=== PATIENT | male | born 1980 | race African-American/Black ===

== ENCOUNTER 2018-08-21 18:51 | Emergency (ER) | payer MEDICAID ==
[2018-08-21] MEDS ORDERED: CARV25TA78 PO (19:01)
[2018-08-21] MEDS ORDERED: ASPIRIN 81 MG CHEW PO ONE (19:20)
[2018-08-21] MEDS ORDERED: NITROGLYCERIN 0.4 MG SUBL SL ONE (19:20)
--- NOTE | 2018-08-21 19:38 | ER Report ---
History and Physical Time Seen By MD: 18:50 Hx. of Stated Complaint: did cocaine yesterday. states he had chest pain and dizzinerss yesterday and today. now has chest tightness and dizziness. states he has HF due to joint terminal attack controller cocaine use HPI/ROS CHIEF COMPLAINT: Chest pain HISTORY OF PRESENT ILLNESS: 38-year-old male presents with chest pain and pressure. He states he snorted and smoked cocaine yesterday afternoon. On the third hit, he developed sharp intermittent chest pain. Of note, patient has a significant history of cocaine use, gets his primary medical care in [place], was seen in both May and June for cocaine related chest pain. In June he states he was diagnosed with heart failure with an ejection fraction of 16%. At that point he was doing cocaine daily. Since then he has tried to minimize cocaine u se but is still using it every few days. Patient states he has had intermittent chest pains since yesterday. 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 These went away, however he developed chest pressure that began approximately 30 minutes prior to arrival and has continued. Pressure radiates to his left jaw. It does not radiate to his arms and he does not believ e that radiates to his back, though patient does note that he has had intermittent back pain that may or may not be related to the chest pain. Patient denies numbness or weakness in his arms or legs. He denies concerning headache. He states he had presyncope while driving during the development of chest pressure, but was able to drive here. He has not had a stress test as he is been told that his heart is too weak for a stress test. He has not had a cardiac catheterization. He admits to a half pack of tobacco daily. He denies alcohol use. REVIEW OF SYSTEMS: Constitutional: No fever, no chills. Eyes: No discharge. ENT: No sore throat. Cardiovascular: above Respiratory: No cough, no shortness of breath. Gastrointestinal: nausea, no vomiting Genitourinary: No hematuria. Musculoskeletal: above Skin: No rashes. Neurological: No headache. Remainder of the 14 system rev: Yes Allergies: Coded Allergies: No Known Drug Allergies (Unverified , 08/21/18) Home Meds Active Scripts Lisinopril (LISINOPRIL) 10 Mg Tablet, 10 MG PO QDAY, #30 TAB Prov:VINOD PICKERING MD 08/22/18 Carvedilol (CARVEDILOL) 25 Mg Tablet, 25 MG PO BID, #30 TAB Prov:VINOD PICKERING MD 08/22/18 Reported Medications Carvedilol (CARVEDILOL) 25 Mg Tablet, 25 MG PO BID, #10 TAB 08/21/18 Reviewed Nurses Notes: Yes Hx Substance Use Disorder: Yes (cocaine) Constitutional Vital Sign - Last 24 Hours 08/21/18 08/21/18 08/21/18 08/21/18 18:59 20:00 20:14 20:19 Temp 98.8 Pulse 68 72 Resp 20 18 B/P (MAP) 175/122 139/101 (114) 144/92 (109) Pulse Ox 93 95 O2 Delivery Room Air 08/21/18 08/21/18 08/21/18 08/21/18 20:47 21:00 21:30 22:00 Pulse 71 65 71 Resp 20 11 18 B/P (MAP) 124/87 (99) Pulse Ox 97 95 97 08/21/18 08/21/18 08/21/18 08/21/18 22:05 22:20 22:35 22:40 Pulse 70 71 74 62 Resp 19 20 8 10 Pulse Ox 93 95 99 97 08/21/18 08/21/18 08/21/18 08/21/18 22:45 22:50 22:55 23:00 Pulse ??? 71 74 73 Resp 23 20 17 16 Pulse Ox 96 93 93 92 08/21/18 08/21/18 08/21/18 08/21/18 23:05 23:10 23:15 23:20 Pulse 58 62 59 77 Resp 14 13 17 20 Pulse Ox 97 96 94 91 08/21/18 08/21/18 08/21/18 08/21/18 23:25 23:30 23:35 23:40 Pulse 76 76 57 54 Resp 18 16 16 15 Pulse Ox 95 95 95 98 08/21/18 08/21/18 23:45 23:50 Pulse 63 63 Resp 22 9 Pulse Ox 100 97 Physical Exam General Appearance: The patient is alert, has no immediate need for airway protection and no signs of toxicity. Eyes: Pupils equal and round no pallor or injection. ENT, Mouth: Mucous membranes are moist. Respiratory: There are no retractions, lungs are clear to auscultation. Cardiovascular: Regular rate and rhythm. iii/vi systolic murmur, no carotid bruit. Pulses = and strong in all ext Gastrointestinal: Abdomen is soft and non tender, no masses, bowel sounds normal. Neurological: alert, oriented x 3, moves all extremities Skin: Warm and dry, no rashes. Musculoskeletal: Neck is supple non tender. Extremities are nontender, nonswollen and have full range of motion. DIFFERENTIAL DIAGNOSIS: After history and physical exam differential diagnosis was considered for chest pain including but not limited to myocardial ischemia, pericarditis pulmonary embolus, chest wall pain, pleural inflammation and pulmonary infectious causes.shortness of breath including but not limited to pulmonary infectious process, COPD, asthma, pulmonary embolus and congestive heart failure. Medical Decision Making Data Points Result Diagram: 08/21/18190408/21/181904 Laboratory Hematology Test 08/21/18 19:05 08/21/18 20:28 08/22/18 00:27 Red Blood Count 4.50 M/uL (4.00-5.60) Mean Corpuscular Volume 86.0 fL (80.0-96.0) Mean Corpuscular Hemoglobin 29.2 pg (26.0-33.0) Mean Corpuscular Hemoglobin Concent 33.9 g/dL (32.0-36.0) Red Cell Distribution Width 15.6 % (11.5-14.5) Mean Platelet Volume 8.3 fL (7.2-11.1) Neutrophils (%) (Auto) 53.3 % (39.4-72.5) Lymphocytes (%) (Auto) 33.8 % (17.6-49.6) Monocytes (%) (Auto) 9.3 % (4.1-12.4) Eosinophils (%) (Auto) 2.5 % (0.4-6.7) Basophils (%) (Auto) 1.1 % (0.3-1.4) Nucleated RBC Relative Count (auto) 0.0 /100WBC Neutrophils # (Auto) 2.7 K/uL (2.0-7.4) Lymphocytes # (Auto) 1.7 K/uL (1.3-3.6) Monocytes # (Auto) 0.5 K/uL (0.3-1.0) Eosinophils # (Auto) 0.1 K/uL (0.0-0.5) Basophils # (Auto) 0.1 K/uL (0.0-0.1) Nucleated RBC Absolute Count (auto) 0.00 K/uL Prothrombin Time 14.0 seconds (12.0-14.4) Prothromb Time International Ratio 1.08 Activated Partial Thromboplast Time 34 seconds (23-35) Sodium Level 142 mmol/L (137-145) Potassium Level 3.4 mmol/L (3.5-5.0) Chloride Level 108 mmol/L (98-107) Carbon Dioxide Level 25 mmol/L (22-30) Blood Urea Nitrogen 12 mg/dl (9-21) Creatinine 1.20 mg/dl (0.66-1.25) Glomerular Filtration Rate Calc > 60.0 Random Glucose 148 mg/dl (75-110) Calcium Level 9.2 mg/dl (8.4-10.2) Total Bilirubin 0.4 mg/dl (0.2-1.3) Aspartate Amino Transf (AST/SGOT) 28 U/L (0-35) Alanine Aminotransferase (ALT/SGPT) 25 U/L (0-56) Alkaline Phosphatase 47 U/L (0-126) Total Protein 7.5 g/dl (6.3-8.2) Albumin 4.2 g/dl (3.5-5.0) Lipase 60 U/L (23-300) Serum Alcohol < 10 mg/dl Urine Color Yellow Urine Clarity Clear Urine pH 6.0 pH (4.8-9.5) Urine Specific [place] 1.025 Urine Protein Negative mg/dL (NEGATIVE) Urine Glucose (UA) Negative mg/dL (NEGATIVE) Urine Ketones Negative mg/dL (NEGATIVE) Urine Blood Negative (NEGATIVE) Urine Nitrite Negative (NEGATIVE) Urine Bilirubin Negative (NEGATIVE) Urine Urobilinogen Negative mg/dL (0.2-1.9) Urine Leukocyte Esterase Negative (NEGATIVE) Urine RBC 1 /HPF (0-2/HPF) Urine WBC 1 /HPF (0-5/HPF) Urine Squamous Epithelial Cells None /LPF (</=FEW) Urine Bacteria Negative /HPF (NONE-FEW) Urine Mucus Few /HPF (NONE-FEW) Urine Opiates Screen Negative Urine Barbiturates Screen Negative Ur Tricyclic Antidepressants Screen Negative Urine Phencyclidine Screen Negative Urine Amphetamines Screen Negative Urine Benzodiazepines Screen Negative Urine Cocaine Screen Positive Urine Cannabinoids Screen Negative Troponin I < 0.012 ng/ml Chemistry Test 08/21/18 19:05 08/21/18 20:28 08/22/18 00:27 White Blood Count 5.1 k/uL (4.5-11.0) Red Blood Count 4.50 M/uL (4.00-5.60) Hemoglobin 13.1 g/dL (14.0-18.0) Hematocrit 38.7 % (42.0-52.0) Mean Corpuscular Volume 86.0 fL (80.0-96.0) Mean Corpuscular Hemoglobin 29.2 pg (26.0-33.0) Mean Corpuscular Hemoglobin Concent 33.9 g/dL (32.0-36.0) Red Cell Distribution Width 15.6 % (11.5-14.5) Platelet Count 243 K/uL (150-450) Mean Platelet Volume 8.3 fL (7.2-11.1) Neutrophils (%) (Auto) 53.3 % (39.4-72.5) Lymphocytes (%) (Auto) 33.8 % (17.6-49.6) Monocytes (%) (Auto) 9.3 % (4.1-12.4) Eosinophils (%) (Auto) 2.5 % (0.4-6.7) Basophils (%) (Auto) 1.1 % (0.3-1.4) Nucleated RBC Relative Count (auto) 0.0 /100WBC Neutrophils # (Auto) 2.7 K/uL (2.0-7.4) Lymphocytes # (Auto) 1.7 K/uL (1.3-3.6) Monocytes # (Auto) 0.5 K/uL (0.3-1.0) Eosinophils # (Auto) 0.1 K/uL (0.0-0.5) Basophils # (Auto) 0.1 K/uL (0.0-0.1) Nucleated RBC Absolute Count (auto) 0.00 K/uL Prothrombin Time 14.0 seconds (12.0-14.4) Prothromb Time International Ratio 1.08 Activated Partial Thromboplast Time 34 seconds (23-35) Glomerular Filtration Rate Calc > 60.0 Calcium Level 9.2 mg/dl (8.4-10.2) Total Bilirubin 0.4 mg/dl (0.2-1.3) Aspartate Amino Transf (AST/SGOT) 28 U/L (0-35) Alanine Aminotransferase (ALT/SGPT) 25 U/L (0-56) Alkaline Phosphatase 47 U/L (0-126) Total Protein 7.5 g/dl (6.3-8.2) Albumin 4.2 g/dl (3.5-5.0) Lipase 60 U/L (23-300) Serum Alcohol < 10 mg/dl Urine Color Yellow Urine Clarity Clear Urine pH 6.0 pH (4.8-9.5) Urine Specific [place] 1.025 Urine Protein Negative mg/dL (NEGATIVE) Urine Glucose (UA) Negative mg/dL (NEGATIVE) Urine Ketones Negative mg/dL (NEGATIVE) Urine Blood Negative (NEGATIVE) Urine Nitrite Negative (NEGATIVE) Urine Bilirubin Negative (NEGATIVE) Urine Urobilinogen Negative mg/dL (0.2-1.9) Urine Leukocyte Esterase Negative (NEGATIVE) Urine RBC 1 /HPF (0-2/HPF) Urine WBC 1 /HPF (0-5/HPF) Urine Squamous Epithelial Cells None /LPF (</=FEW) Urine Bacteria Negative /HPF (NONE-FEW) Urine Mucus Few /HPF (NONE-FEW) Urine Opiates Screen Negative Urine Barbiturates Screen Negative Ur Tricyclic Antidepressants Screen Negative Urine Phencyclidine Screen Negative Urine Amphetamines Screen Negative Urine Benzodiazepines Screen Negative Urine Cocaine Screen Positive Urine Cannabinoids Screen Negative Troponin I < 0.012 ng/ml Coagulation Test 08/21/18 19:05 Prothrombin Time 14.0 seconds Prothromb Time International Ratio 1.08 Activated Partial Thromboplast Time 34 seconds Toxicology Test 08/21/18 19:05 08/21/18 20:28 Serum Alcohol < 10 mg/dl Urine Opiates Screen Negative Urine Barbiturates Screen Negative Ur Tricyclic Antidepressants Screen Negative Urine Phencyclidine Screen Negative Urine Amphetamines Screen Negative Urine Benzodiazepines Screen Negative Urine Cocaine Screen Positive Urine Cannabinoids Screen Negative Urinalysis Test 08/21/18 20:28 Urine Color Yellow Urine Clarity Clear Urine pH 6.0 pH (4.8-9.5) Urine Specific [place] 1.025 Urine Protein Negative mg/dL (NEGATIVE) Urine Glucose (UA) Negative mg/dL (NEGATIVE) Urine Ketones Negative mg/dL (NEGATIVE) Urine Blood Negative (NEGATIVE) Urine Nitrite Negative (NEGATIVE) Urine Bilirubin Negative (NEGATIVE) Urine Urobilinogen Negative mg/dL (0.2-1.9) Urine Leukocyte Esterase Negative (NEGATIVE) Urine RBC 1 /HPF (0-2/HPF) Urine WBC 1 /HPF (0-5/HPF) Urine Squamous Epithelial Cells None /LPF (</=FEW) Urine Bacteria Negative /HPF (NONE-FEW) Urine Mucus Few /HPF (NONE-FEW) EKG/Imaging EKG Interpretation 12 lead EKG: Rhythm: normal sinus rhythm [place]: normal QRS: normal ST segments: < .5mm elevations v1-3. borderline depression ii, iii, avF. Flipped T ii, iii, avF Inf ischemia, no STEMI. [ ] Monitor Interpretation: Normal Sinus Rhythm ED Course/Re-evaluation ED Course 38 m presents with cp in face of recent cocaine use. I obtained prior records from [facility] which corroborate his history regarding cardiomyopathy/CHF likely due to cocaine use. EKG's in ED show e/o ischemia but unclear if acute, and no dynamic changes. I recommended admission but pt ultimately wished to go home; he understands risks. He did agree to stay for third troponin, obtained 8 hrs after chest pain. This was negative as well. We discussed at length the likelihood of any more cocaine killing him and pt understands. I prescribed his home medications and Patrick understands importance of being on these daily. Considered but doubt aortic dissection, pe, or other emergent etiology. Consider vasospasm as cause, given history. Decision to Disposition Date: Aug 22, 2018 Decision to Disposition Time: 00:58 Depart Departure Latest Vital Signs Vital Signs Date Time Temp Pulse Resp B/P (MAP) Pulse Ox O2 Delivery O2 Flow Rate FiO2 08/21/18 23:50 63 9 97 08/21/18 20:47 124/87 (99) 08/21/18 18:59 98.8 Room Air Impression: Primary Impression: Chest pain Condition: Improved Disposition: HOME OR SELF-CARE New Scripts Lisinopril (LISINOPRIL) 10 Mg Tablet 10 MG PO QDAY, #30 TAB Prov: VINOD PICKERING MD 08/22/18 Carvedilol (CARVEDILOL) 25 Mg Tablet 25 MG PO BID, #30 TAB Prov: VINOD PICKERING MD 08/22/18 Patient Instructions: Chest Pain (ED), Cocaine Abuse (ED) Additional Instructions: As we discussed, return or go to local emergency department immediately for retu rn of symptoms. While I do not see evidence of a heart attack tonight, it is very likely any further cocaine use will kill you. Please seek help from an outpatient detox facility at home to quit cocaine use and substitute healthy habits. It is very important you are taking your blood pressure medications every day to help your heart function. Problem Qualifiers Primary Impression: Chest pain Chest pain type: unspecified Qualified Codes: R07.9 - Chest pain, unspecified VINOD PICKERING MD Aug 21, 2018 19:38
[2018-08-21 19:41] LABS: INR 1.08
[2018-08-21 19:52] LABS: PLATELET COUNT, AUTOMATED 243 K/uL (150-450)
--- NOTE | 2018-08-21 20:06 | EKG ---
FACILITY: [facility] PATIENT NAME: UMBERTO PRABHAKAR : [id number] MR: [id number] V: [id number] EXAM DATE: ORDERING PHYSICIAN: VINOD PICKERING TECHNOLOGIST: FRANCES Test Reason : CARDIAC Blood Pressure : / mmHG Vent. Rate : 076 BPM Atrial Rate : 076 BPM P-R Int : 144 ms QRS Dur : 090 ms QT Int : 388 ms P-R-T Axes : 071 030 -38 degrees QTc Int : 436 ms Normal sinus rhythm Left ventricular hypertrophy T wave abnormality, consider inferior ischemia Abnormal ECG No previous ECGs available Confirmed by Jose Juan Friedman ([id number] on 08/22/2018 6:54:55 AM Referred By: Confirmed By:Jose Juan Velasco
[2018-08-21] MEDS ORDERED: DILTIAZEM 5 MG/ML 5ML IVPUSH IVP ONE (20:15)
--- NOTE | 2018-08-21 20:29 | RADIOLOGY IMAGING REPORT ---
[place] [facility] [place] NAME: Patrick Farris : 1980 MR: [id number] V: [id number] EXAM DATE: ORDERING PHYSICIAN: VINOD PICKERING TECHNOLOGIST: Location: [facility] Patient: Patrick Farris : 1980 Visit/Account:[id number] Date of Sevice: 08/21/2018 Exam type: CHEST SINGLE AP History: chest pain Comparison: None. Findings: Both lungs are well-expanded and clear. There is no focal infiltrate, pleural effusion or pneumothora x. Heart size is likely normal allowing for technique. The osseous structures are unremarkable. IMPRESSION: 1. No acute cardiopulmonary disease. Report Dictated By: Gage Ross MD at 08/21/2018 8:23 PM Report E-Signed By: Gage Ross MD at 08/21/2018 8:24 PM WSN:[id number]
[2018-08-21 20:47] VITALS: BP 124/87
--- NOTE | 2018-08-21 21:32 | EKG ---
FACILITY: [facility] - [place], [place] PATIENT NAME: UMBERTO PRABHAKAR : [id number] MR: [id number] V: [id number] EXAM DATE: ORDERING PHYSICIAN: VINOD PICKERING TECHNOLOGIST: FRANCES Hardy Reason : REPEAT EKG CP Blood Pressure : / mmHG Vent. Rate : 062 BPM Atrial Rate : 062 BPM P-R Int : 150 ms QRS Dur : 092 ms QT Int : 428 ms P-R-T Axes : 068 031 -52 degrees QTc Int : 434 ms Normal sinus rhythm Left ventricular hypertrophy ST and T wave abnormality, consider inferior ischemia Abnormal ECG When compared with ECG of 21-AUG-2018 18:56, No significant change was found Confirmed by Jose Juan Friedman ([id number] on 08/22/2018 6:57:42 AM Referred By: Confirmed By:Jose Juan Velasco
[2018-08-21] MEDS ORDERED: DILTIAZEM IR 30 MG TAB PO ONE (23:30)
[2018-08-21] MEDS ORDERED: LISINOPRIL 10 MG TAB PO ONE (23:30)
[2018-08-21] MEDS ORDERED: CARVEDILOL 25 MG TABLET PO ONE (23:35)
[2018-08-22] MEDS ORDERED: CARV25TA78 PO (01:03)
[2018-08-22] MEDS ORDERED: LISI-362 PO (01:03)
== END 2018-08-22 01:20 | disposition home or self-care (01) ==
LOC: ER 19:18
DX: R07.9 Chest pain, unspecified (principal)
CPT/HCPCS: 71045; 80305; 81001; 83690; 84484; 85025; 85610; 85730; 93005; 96374; 99284; G0480; J3490; 80320; 82040; 82247; 82310; 82374; 82435; 82565; 82947; 84075; 84132; 84155; 84295; 84450; 84460; 84520